=== PATIENT | female | born 1930 | race Caucasian/White ===

== ENCOUNTER 2016-04-19 12:40 | Inpatient (IN) | payer MEDICARE, BC ==
[~2016-04-19] VITALS: Ht 165.1 cm; Wt 68.4 kg
[~2016-04-19 12:40] MED LIST: 00186-0372-20 IH; ANDROGEL1% TP; ASPI325T6 PO; ASPIRIN 81M81 MG/TA2 PO; ASPIRIN E.C. 8181 MG PO; BENADRYL25 M2 PO; BENADRYL50 MG PO; CALAN120 MG PO; CALCIUM 600-D 61 TAB PO; CALCIUM 600600 M1 PO; CIPRO 500MG TA500 MG PO; CLARITIN 1010 MG/TAB PO; CLOBETASOL0.05% TP; COZAAR 50MG50 MG/TAB PO; DULCOLAX S10 MG/SUPP RC; DULERA1 AR1 IH; EPA FISH OIL1000 MG PO; FERROUSAL325 MG PO; FLAGYL500 MG PO; FLONASE0.05 MG/AC NS; FLOVENT 220MCG7.9 GM IH; FORADIL IH; FOSAMAX PLUS D1 TAB PO; IBU-4400 MG PO; LASIX 20MG TABL20 MG PO; LEVOTHYROXIN0.075 MG PO; MAXZIDE-25MG TA1 TAB PO; MILK OF MA400 MG/52 PO; MULTI VITAMINS1 TAB PO; MULTIPLE VITAMI1 CAP PO; NEXIUM 40MG40 MG PO; NORCO 325 MG-51 TAB PO; OMEGA 31000 MG PO; PRILOSEC 20MG20 MG PO; PRINIVIL10 MG PO; PROTONIX 40MG T40 MG PO; RT ADVAIR HFA 1112 G IH; RT SPIRIVA18 MCG IH; SENOKOT S 50 MG1 TAB PO; SINGULAIR 110 MG/TAB PO; SYNTHROID0.075 MG/T PO; TEMOVATE0.05% TP; TYLENOL 325MG325 MG PO; TYLENOL 500MG500 MG PO; TYLENOL PM 5001 CAP PO; UNABLE; VERAPAMIL HCL180 M1 PO; VERAPAMIL120 MG/TA1 PO; VERAPAMIL240 MG/TAB PO; VITAMINS; ZANTAC 150150 MG PO; ZANTAC 150MG T150 MG PO; ZESTRIL 10MG10 MG PO
[2016-06-18] MEDS ORDERED: PROTONIX 40MG T40 MG PO (11:47)
[2016-06-18] MEDS ORDERED: BENADRYL25 M2 PO (11:50)
[2016-06-18] MEDS ORDERED: DITROPAN XL10 MG PO (11:50)
[2016-06-18] MEDS ORDERED: LUTEIN20 M1 PO (11:51)
[2016-06-21] VITALS (12 sets, daily range): BP systolic 102–142; BP diastolic 49–78; PULSE 55–77; TEMP 97.3–98
[2016-06-21] MEDS ORDERED: CELEBREX 200MG200 MG PO (14:11)
[2016-06-21] MEDS ORDERED: NORCO 325 MG-7.1 TAB PO (14:11)
[2016-06-21] MEDS ORDERED: ULTRAM 50MG TAB50 MG PO (14:11)
[2016-06-21] MEDS ORDERED: XARELTO10 MG PO (14:12)
[2016-06-22 03:01] VITALS: BP 107/53; PULSE 70; TEMP 96.9
[2016-06-22 06:58] LABS: HEMATOCRIT 31.7 % (37.0-47.0); HEMOGLOBIN 10.4 g/dl (12.5-16.0)
[2016-06-22 08:09] VITALS: BP 151/60; PULSE 88; TEMP 98.6
[2016-06-22 11:52] VITALS: BP 109/86; PULSE 64; TEMP 97.4
[2016-06-22 15:32] VITALS: BP 122/43; PULSE 64; TEMP 97.5
[2016-06-22 20:06] VITALS: BP 117/51; PULSE 64; TEMP 97.5
[2016-06-23] VITALS (7 sets, daily range): BP systolic 90–134; BP diastolic 36–72; PULSE 57–77; TEMP 97.6–98.5
[2016-06-24 00:39] VITALS: BP 93/51; PULSE 72; TEMP 98.2
[2016-06-24 04:38] VITALS: BP 123/52; PULSE 79; TEMP 98.2
[2016-06-24 07:38] VITALS: BP 110/50; PULSE 71; TEMP 98.3
== END 2016-06-24 11:13 | DRG 470 ==
LOC: JCC 06-21 07:30
PROVIDERS: Orthopaedic Surgery
PROC: 0SRD0J9 Replacement of Left Knee Joint with Synthetic Substitute, Cemented, Open Approach (ICD-10-PCS; principal; 2016-06-21 09:45)
DX: M17.12 Unilateral primary osteoarthritis, left knee (principal); I10 Essential (primary) hypertension; Z87.891 Personal history of nicotine dependence
CPT/HCPCS: A4315; A9284; C1713; C1776; J0690; J1100; J1885; J2250; J2270; J2405; J2550; J2704; J7120

== ENCOUNTER → 2016-06-26 | Outpatient (REF) ==
[~2016-06-26] MED LIST changes: +CELEBREX 200MG200 MG PO; +DITROPAN XL10 MG PO; +K-DUR 10 MEQ T10 MEQ PO; +LUTEIN20 M1 PO; +NORCO 325 MG-7.1 TAB PO; +ULTRAM 50MG TAB50 MG PO; +XARELTO10 MG PO
[2016-06-26 13:54] LABS: PH 6 (5-8); SQUAMOUS EPITHELIAL None Seen /hpf; URINE APPEARANCE Cloudy; URINE BACTERIA Many /hpf; URINE BILIRUBIN Negative (NEGATIVE); URINE BLOOD 3+ (NEGATIVE); URINE COLOR Amber; URINE GLUCOSE Negative (NEGATIVE); URINE KETONE Negative (NEGATIVE); URINE RBC >50 /hpf; URINE UROBILINOGEN >=4.0 mg/dL (NEGATIVE); URINE WBC >50 /hpf
== END ==
LOC: ZCOL.LAB 12:14
PROVIDERS: Nurse Practitioner Family
DX: Z01.89 Encounter for other specified special examinations (principal)

== ENCOUNTER 2016-12-17 11:49 | Inpatient (IN) | payer MEDICARE, BC ==
[~2016-12-17] VITALS: Ht 165.1 cm; Wt 72.0 kg
[2016-12-17] VITALS (10 sets, daily range): BP systolic 96–131; BP diastolic 46–61; PULSE 73–83; TEMP 98–98.4
[~2016-12-17 11:49] MED LIST changes: -K-DUR 10 MEQ T10 MEQ PO
[2016-12-17] MEDS ORDERED: SINGULAIR 110 MG/TAB PO (12:01)
[2016-12-17] MEDS ORDERED: TYLENOL 500MG500 MG PO (12:06)
[2016-12-17 14:51] LABS: BASO # 0.1 (0.0-0.2); BASO % 0.5 % (0.0-2.0); EOS # 0.2 (0.0-0.7); EOS % 1.7 % (0-4.0); GRAN # 11.3 (1.4-6.5); GRAN % 81.5 % (42.2-75.2); HEMATOCRIT 37.1 % (37.0-47.0); LYMPH # 1.3 (1.2-3.4); MEAN CELL VOLUME 95 fl (80.0-100.0); MEAN CORPUSCULAR HEMOGLOBIN 31 pg (27.0-31.0); MEAN CORPUSCULAR HGB CONC 32 g/dl (33.0-37.0); MEAN PLATELET VOLUME 8.9 fl (7.4-10.4); MONO % 6.9 % (1.7-9.3); PLATELET COUNT 256 K/mm3 (130-400); RED BLOOD COUNT 3.89 M/mm3 (4.10-5.30); REDCELL DISTRIBUTION WIDTH-CV 15.3 % (11.5-14.5); WHITE BLOOD COUNT 13.8 K/mm3 (4.8-10.8)
[2016-12-17 14:52] LABS: HEMOGLOBIN 11.9 g/dl (12.5-16.0)
[2016-12-17 15:01] LABS: ALBUMIN 3.8 gm/dL (3.5-5.0); BILIRUBIN,TOTAL 0.5 mg/dL (0.0-1.0); CALCIUM 9.8 mg/dL (8.4-10.2); CREATININE, serum 0.74 mg/dL (0.52-1.25); POTASSIUM 4.9 mmol/L (3.4-5.0); TOTAL PROTEIN 6.5 gm/dL (6.4-8.2)
[2016-12-17 15:16] LABS: PROTHROMBIN TIME 11.5 SECONDS (9.7-12.8)
[2016-12-17 16:05] LABS: PH 5 (5-8); SQUAMOUS EPITHELIAL 0-2 /hpf; URINE APPEARANCE Clear; URINE BACTERIA None Seen /hpf; URINE BILIRUBIN Negative (NEGATIVE); URINE BLOOD 2+ (NEGATIVE); URINE COLOR Yellow; URINE GLUCOSE Negative (NEGATIVE); URINE KETONE Negative (NEGATIVE); URINE RBC 0-2 /hpf; URINE UROBILINOGEN Negative (NEGATIVE); URINE WBC 0-2 /hpf
[2016-12-18] VITALS (7 sets, daily range): BP systolic 78–109; BP diastolic 43–62; PULSE 55–88; TEMP 97.5–98.6
[2016-12-18 07:09] LABS: BASO % 0.2 % (0.0-2.0); EOS # 0.1 (0.0-0.7); EOS % 0.5 % (0-4.0); GRAN # 7.1 (1.4-6.5); GRAN % 73.9 % (42.2-75.2); LYMPH # 1.3 (1.2-3.4); LYMPH % 13.1 % (20.0-51.0); MEAN CELL VOLUME 99 fl (80.0-100.0); MEAN CORPUSCULAR HGB CONC 31 g/dl (33.0-37.0); MEAN PLATELET VOLUME 9.1 fl (7.4-10.4); MONO # 1.1 (0.1-0.6); MONO % 11.9 % (1.7-9.3); PLATELET COUNT 213 K/mm3 (130-400); RED BLOOD COUNT 3.23 M/mm3 (4.10-5.30); REDCELL DISTRIBUTION WIDTH-CV 15.5 % (11.5-14.5); WHITE BLOOD COUNT 9.6 K/mm3 (4.8-10.8)
[2016-12-18 07:22] LABS: CREATININE, serum 0.79 mg/dL (0.52-1.25); HEMATOCRIT 31.8 % (37.0-47.0); HEMOGLOBIN 9.9 g/dl (12.5-16.0); MEAN CORPUSCULAR HEMOGLOBIN 31 pg (27.0-31.0); POTASSIUM 4.8 mmol/L (3.4-5.0)
[2016-12-19 07:14] LABS: HEMATOCRIT 31.1 % (37.0-47.0); HEMOGLOBIN 9.7 g/dl (12.5-16.0)
[2016-12-19 09:08] VITALS: BP 101/49; PULSE 85; TEMP 98
[2016-12-19 14:45] VITALS: BP 97/47; PULSE 88; TEMP 98.4
[2016-12-19 17:55] VITALS: BP 103/50; PULSE 83; TEMP 98.1
[2016-12-19 20:00] VITALS: BP 98/43; PULSE 78; TEMP 97.6
[2016-12-20 00:41] VITALS: BP 106/48; PULSE 76; TEMP 97.8
[2016-12-20 04:35] VITALS: BP 108/49; PULSE 73; TEMP 98.1
[2016-12-20 08:19] LABS: HEMATOCRIT 31.7 % (37.0-47.0); HEMOGLOBIN 9.9 g/dl (12.5-16.0)
[2016-12-20 08:52] LABS: POTASSIUM 4.5 mmol/L (3.4-5.0)
[2016-12-20 09:12] LABS: MEAN CELL VOLUME 98 fl (80.0-100.0); MEAN CORPUSCULAR HGB CONC 31 g/dl (33.0-37.0); MEAN PLATELET VOLUME 9.8 fl (7.4-10.4); PLATELET COUNT 203 K/mm3 (130-400); RED BLOOD COUNT 3.25 M/mm3 (4.10-5.30); REDCELL DISTRIBUTION WIDTH-CV 14.6 % (11.5-14.5); WHITE BLOOD COUNT 8.8 K/mm3 (4.8-10.8)
[2016-12-20 09:18] LABS: ADD PATHOLOGY DIFF REVIEW NO; HEMATOCRIT 31.8 % (37.0-47.0); MEAN CORPUSCULAR HEMOGLOBIN 31 pg (27.0-31.0)
[2016-12-20 09:51] LABS: CALCIUM 8.3 mg/dL (8.4-10.2); CREATININE, serum 0.72 mg/dL (0.52-1.25); POTASSIUM 4.8 mmol/L (3.4-5.0)
[2016-12-20 10:04] VITALS: BP 94/55; PULSE 72; TEMP 97.7
[2016-12-20 11:32] LABS: PH 5 (5-8); SQUAMOUS EPITHELIAL 0-2 /hpf; URINE APPEARANCE Clear; URINE BACTERIA None Seen /hpf; URINE BILIRUBIN Negative (NEGATIVE); URINE BLOOD Negative (NEGATIVE); URINE COLOR Yellow; URINE GLUCOSE Negative (NEGATIVE); URINE KETONE 1+ (NEGATIVE); URINE RBC 0-2 /hpf; URINE UROBILINOGEN Negative (NEGATIVE); URINE WBC 0-2 /hpf
[2016-12-20 12:51] VITALS: BP 92/50; PULSE 63; TEMP 97.8
[2016-12-20 13:17] LABS: BAND 13 % (0-10); EOSINOPHIL 1 % (0-4); NEUTROPHILS 73 % (42.0-75.2); TOTAL CELLS COUNTED 100
[2016-12-20 13:18] LABS: PLATELET ESTIMATE NORMAL (NORMAL)
[2016-12-20 17:40] VITALS: BP 107/49; PULSE 69; TEMP 98.1
[2016-12-20 21:55] VITALS: BP 98/45; PULSE 68; TEMP 97.6
[2016-12-21 01:39] VITALS: BP 89/49; PULSE 68; TEMP 99.2
[2016-12-21 05:07] VITALS: BP 100/54; PULSE 77; TEMP 98.3
[2016-12-21 07:20] LABS: MEAN CELL VOLUME 95 fl (80.0-100.0); MEAN CORPUSCULAR HGB CONC 33 g/dl (33.0-37.0); MEAN PLATELET VOLUME 8.8 fl (7.4-10.4); PLATELET COUNT 212 K/mm3 (130-400); RED BLOOD COUNT 2.84 M/mm3 (4.10-5.30); REDCELL DISTRIBUTION WIDTH-CV 14.9 % (11.5-14.5); WHITE BLOOD COUNT 6.1 K/mm3 (4.8-10.8)
[2016-12-21 07:31] LABS: ADD PATHOLOGY DIFF REVIEW NO; HEMATOCRIT 27.1 % (37.0-47.0); HEMOGLOBIN 8.8 g/dl (12.5-16.0); MEAN CORPUSCULAR HEMOGLOBIN 31 pg (27.0-31.0)
[2016-12-21 07:33] LABS: CALCIUM 9.1 mg/dL (8.4-10.2); CREATININE, serum 1.01 mg/dL (0.52-1.25); MAGNESIUM 2.1 mg/dL (1.6-2.3); POTASSIUM 4.4 mmol/L (3.4-5.0)
[2016-12-21 09:43] VITALS: BP 94/47; PULSE 73; TEMP 97.4
[2016-12-21 09:45] LABS: BAND 47 % (0-10); DOHLE BODIES PRESENT; EOSINOPHIL 7 % (0-4); NEUTROPHILS 9 % (42.0-75.2); TOTAL CELLS COUNTED 100
[2016-12-21 10:01] LABS: TOXIC GRANULATION PRESENT
[2016-12-21 13:58] VITALS: BP 101/44; PULSE 62; TEMP 97.7
[2016-12-21 17:37] VITALS: BP 99/46; PULSE 99; TEMP 97.7
[2016-12-21 22:17] VITALS: BP 96/46; PULSE 72; TEMP 97
[2016-12-22 05:50] VITALS: BP 115/52; PULSE 79; TEMP 97.9
[2016-12-22 06:35] LABS: BASO % 0.5 % (0.0-2.0); EOS # 0.4 (0.0-0.7); EOS % 7.6 % (0-4.0); GRAN % 51.7 % (42.2-75.2); LYMPH # 1.3 (1.2-3.4); LYMPH % 22.1 % (20.0-51.0); MEAN CELL VOLUME 96 fl (80.0-100.0); MEAN CORPUSCULAR HGB CONC 32 g/dl (33.0-37.0); MEAN PLATELET VOLUME 8.8 fl (7.4-10.4); MONO % 17.6 % (1.7-9.3); PLATELET COUNT 225 K/mm3 (130-400); RED BLOOD COUNT 2.91 M/mm3 (4.10-5.30); REDCELL DISTRIBUTION WIDTH-CV 15.1 % (11.5-14.5); WHITE BLOOD COUNT 5.8 K/mm3 (4.8-10.8)
[2016-12-22 06:47] LABS: HEMATOCRIT 27.8 % (37.0-47.0); HEMOGLOBIN 8.8 g/dl (12.5-16.0); MEAN CORPUSCULAR HEMOGLOBIN 30 pg (27.0-31.0)
[2016-12-22 06:59] LABS: CALCIUM 9.1 mg/dL (8.4-10.2); CREATININE, serum 0.85 mg/dL (0.52-1.25); MAGNESIUM 1.9 mg/dL (1.6-2.3); POTASSIUM 4.1 mmol/L (3.4-5.0)
[2016-12-22] MEDS ORDERED: ULTRAM 50MG TAB50 MG PO (07:38)
[2016-12-22] MEDS ORDERED: XARELTO10 MG PO (07:38)
[2016-12-22] MEDS ORDERED: CELEBREX 200MG200 MG PO (07:38)
[2016-12-22] MEDS ORDERED: LASIX 20MG TABL20 MG PO (09:42)
[2016-12-22] MEDS ORDERED: K-DUR 10 MEQ T10 MEQ PO (09:42)
[2016-12-22] MEDS ORDERED: NORCO 325 MG-51 TAB PO (09:43)
[2016-12-22 09:51] VITALS: BP 115/52; PULSE 79; TEMP 97.9
[2016-12-22 10:00] VITALS: BP 100/53; PULSE 87; TEMP 97.8
[2016-12-22 10:31] VITALS: BP 115/52; PULSE 79; TEMP 97.9
== END 2016-12-22 12:20 | DRG 481 ==
LOC: COL.ER 11:49 → SURG 12:59
PROVIDERS: Family Medicine; Nurse Practitioner Family; Orthopaedic Surgery; Physician Assistant
PROC: 0HQ0XZZ Repair Scalp Skin, External Approach (ICD-10-PCS; 2016-12-17)
PROC: 0QS606Z Reposition Right Upper Femur with Intramedullary Internal Fixation Device, Open Approach (ICD-10-PCS; principal; 2016-12-17 17:45)
DX: S72.141A Displaced intertrochanteric fracture of right femur, initial encounter for closed fracture (principal); E87.1 Hypo-osmolality and hyponatremia; F05 Delirium due to known physiological condition; Z66 Do not resuscitate; W18.30XA Fall on same level, unspecified, initial encounter; I10 Essential (primary) hypertension; J44.9 Chronic obstructive pulmonary disease, unspecified; Z87.891 Personal history of nicotine dependence; I34.0 Nonrheumatic mitral (valve) insufficiency; S01.01XA Laceration without foreign body of scalp, initial encounter; E87.70 Fluid overload, unspecified; D50.0 Iron deficiency anemia secondary to blood loss (chronic)
CPT/HCPCS: 99222-AI; 99232-AI; 99233-AI; 99239; A4315; C1713; J0690; J1170; J1885; J1940; J2250; J2270; J2370; J2405; J2704; J3010; J7030; J7040

== ENCOUNTER 2017-04-23 21:04 | Emergency (ER) | payer MEDICARE, BC ==
[2007-04-24 06:18] VITALS: BP 138/77
[~2017-04-23] VITALS: Ht 170.2 cm; Wt 63.4 kg
[~2017-04-23 21:04] MED LIST changes: +K-DUR 10 MEQ T10 MEQ PO
[2017-04-23 22:13] LABS: BASO # 0.1 (0.0-0.2); BASO % 0.4 % (0.0-2.0); EOS # 0.5 (0.0-0.7); GRAN # 12.3 (1.4-6.5); HEMATOCRIT 43.3 % (37.0-47.0); HEMOGLOBIN 13.5 g/dl (12.5-16.0); LYMPH # 1.3 (1.2-3.4); LYMPH % 8.6 % (20.0-51.0); MEAN CELL VOLUME 95 fl (80.0-100.0); MEAN CORPUSCULAR HEMOGLOBIN 30 pg (27.0-31.0); MEAN CORPUSCULAR HGB CONC 31 g/dl (33.0-37.0); MONO # 1.3 (0.1-0.6); MONO % 8.6 % (1.7-9.3); PLATELET COUNT 269 K/mm3 (130-400); RED BLOOD COUNT 4.57 M/mm3 (4.10-5.30); WHITE BLOOD COUNT 15.5 K/mm3 (4.8-10.8)
[2017-04-23 22:21] LABS: ADJUSTED CALCIUM 9.7 mg/dL (8.4-10.2); ALBUMIN 4.7 gm/dL (3.5-5.0); BILIRUBIN,TOTAL 0.5 mg/dL (0.0-1.0); CALCIUM 10.3 mg/dL (8.4-10.2); CREATININE, serum 1.09 mg/dL (0.52-1.25); POTASSIUM 4.2 mmol/L (3.4-5.0); TOTAL PROTEIN 7.9 gm/dL (6.4-8.2)
[2017-04-24 00:11] LABS: COLLECTION METHOD CLEAN CATCH
[2017-04-24 00:16] LABS: MUCOUS Present /lpf; PH 5 (5-8); SQUAMOUS EPITHELIAL None Seen /hpf; URINE APPEARANCE Clear; URINE BACTERIA None Seen /hpf; URINE BILIRUBIN Negative (NEGATIVE); URINE BLOOD Negative (NEGATIVE); URINE COLOR Yellow; URINE GLUCOSE Negative (NEGATIVE); URINE KETONE Negative (NEGATIVE); URINE LEUKOCYTE ESTERASE Negative (NEGATIVE); URINE PROTEIN(semi-quant) Negative (NEGATIVE); URINE RBC 0-2 /hpf; URINE UROBILINOGEN Negative (NEGATIVE); URINE WBC 0-2 /hpf
[2017-04-24 01:38] VITALS: BP 109/62; PULSE 78; TEMP 98.2
== END 2017-04-24 01:00 | disposition home or self-care (01) ==
LOC: COL.ER 21:04
PROVIDERS: Emergency Medicine
DX: R19.7 Diarrhea, unspecified (principal); E86.0 Dehydration; I10 Essential (primary) hypertension; K21.9 Gastro-esophageal reflux disease without esophagitis; E03.9 Hypothyroidism, unspecified; Z90.49 Acquired absence of other specified parts of digestive tract; Z87.891 Personal history of nicotine dependence
CPT/HCPCS: J7120

== ENCOUNTER → 2017-07-07 | Outpatient (CLI) | payer MEDICARE, BC ==
[2017-07-07 09:11] LABS: BASO # 0.1 (0.0-0.2); BASO % 1.1 % (0.0-2.0); EOS # 0.6 (0.0-0.7); EOS % 11.9 % (0-4.0); GRAN # 2.7 (1.4-6.5); GRAN % 50.4 % (42.2-75.2); HEMATOCRIT 40.6 % (37.0-47.0); HEMOGLOBIN 12.7 g/dl (12.5-16.0); LYMPH # 1.4 (1.2-3.4); LYMPH % 26.7 % (20.0-51.0); MEAN CELL VOLUME 100 fl (80.0-100.0); MEAN CORPUSCULAR HEMOGLOBIN 31 pg (27.0-31.0); MEAN CORPUSCULAR HGB CONC 31 g/dl (33.0-37.0); MONO # 0.5 (0.1-0.6); MONO % 9.7 % (1.7-9.3); PLATELET COUNT 250 K/mm3 (130-400); RED BLOOD COUNT 4.07 M/mm3 (4.10-5.30)
[2017-07-07 09:24] LABS: ALBUMIN 4.2 gm/dL (3.5-5.0); BILIRUBIN,TOTAL 0.5 mg/dL (0.0-1.0); CALCIUM 9.9 mg/dL (8.4-10.2); CHOLESTEROL RISK RATIO 2.7; CREATININE, serum 0.81 mg/dL (0.52-1.25); POTASSIUM 4.4 mmol/L (3.4-5.0)
[2017-07-07 09:51] LABS: THYROID STIMULATING HORMONE 5.11 uIU/mL (0.465-4.680)
== END ==
LOC: COL.LAB 08:22
PROVIDERS: Internal Medicine
DX: I10 Essential (primary) hypertension (principal); E78.2 Mixed hyperlipidemia

== ENCOUNTER 2017-07-15 00:20 | Emergency (ER) | payer MEDICARE, BC ==
[2007-04-24 06:18] VITALS: BP 138/77
[~2017-07-15] VITALS: Ht 165.1 cm; Wt 65.9 kg
[2017-07-15 00:28] VITALS: TEMP 96.8
[2017-07-15 00:55] LABS: BASO # 0.1 (0.0-0.2); BASO % 1.1 % (0.0-2.0); EOS # 0.7 (0.0-0.7); EOS % 8.5 % (0-4.0); GRAN % 47.1 % (42.2-75.2); HEMATOCRIT 37.5 % (37.0-47.0); LYMPH # 2.8 (1.2-3.4); LYMPH % 32.2 % (20.0-51.0); MEAN CELL VOLUME 97 fl (80.0-100.0); MEAN CORPUSCULAR HEMOGLOBIN 31 pg (27.0-31.0); MEAN CORPUSCULAR HGB CONC 32 g/dl (33.0-37.0); MEAN PLATELET VOLUME 8.6 fl (7.4-10.4); MONO # 0.9 (0.1-0.6); PLATELET COUNT 245 K/mm3 (130-400); RED BLOOD COUNT 3.86 M/mm3 (4.10-5.30); REDCELL DISTRIBUTION WIDTH-CV 13.8 % (11.5-14.5)
[2017-07-15 00:56] LABS: HEMOGLOBIN 11.9 g/dl (12.5-16.0)
[2017-07-15 01:02] LABS: ALANINE AMINOTRANSFERASE 21 U/L (9-52); ALBUMIN 3.9 gm/dL (3.5-5.0); ALKALINE PHOSPHATASE 74 U/L (50-136); ANION GAP 7 mmol/L (7-16); AST,SGOT 19 U/L (15-37); BILIRUBIN,TOTAL 0.2 mg/dL (0.0-1.0); BLOOD UREA NITROGEN 23 mg/dL (7-17); CARBON DIOXIDE 29 mmol/L (22-30); CHLORIDE 101 mmol/L (98-107); CREATININE, serum 0.76 mg/dL (0.52-1.25); GLUCOSE 101 mg/dL (74-106); INR 1.1 (0.8-3.0); LIPASE 78 U/L (23-300); POTASSIUM 4.3 mmol/L (3.4-5.0); PROTHROMBIN TIME 12.5 SECONDS (9.7-12.8); SODIUM 137 mmol/L (137-145); TOTAL PROTEIN 6.7 gm/dL (6.4-8.2)
[2017-07-15 01:05] LABS: PARTIAL THROMBOPLASTIN TIME 33.1 SECONDS (26.0-37.0)
[2017-07-15 01:15] LABS: TROPONIN-I < 0.012 ng/mL (0.000-0.034)
[2017-07-15] MEDS ORDERED: COZAAR 50MG50 MG/TAB PO (02:02)
[2017-07-15] MEDS ORDERED: VERELAN120 MG PO (02:02)
[2017-07-15 04:30] VITALS: BP 130/73; PULSE 70
== END 2017-07-15 04:51 | disposition home or self-care (01) ==
LOC: COL.ER 00:20
PROVIDERS: Emergency Medicine
DX: R07.9 Chest pain, unspecified (principal); Z90.49 Acquired absence of other specified parts of digestive tract; Z90.89 Acquired absence of other organs

== ENCOUNTER 2018-03-15 18:45 | Emergency (ER) | payer MEDICARE, BC ==
[2007-04-24 06:18] VITALS: BP 138/77
[~2018-03-15] VITALS: Ht 167.6 cm; Wt 65.9 kg
[~2018-03-15 18:45] MED LIST changes: +VERELAN120 MG PO
[2018-03-15 18:49] VITALS: TEMP 97.4
[2018-03-15 20:20] VITALS: BP 172/87; PULSE 75
== END 2018-03-15 20:20 | disposition home or self-care (01) ==
LOC: COL.ER 18:45
DX: S00.03XA Contusion of scalp, initial encounter (principal); I10 Essential (primary) hypertension; K21.9 Gastro-esophageal reflux disease without esophagitis; E03.9 Hypothyroidism, unspecified; J45.909 Unspecified asthma, uncomplicated; I48.91 Unspecified atrial fibrillation; Z87.891 Personal history of nicotine dependence; W01.198A Fall on same level from slipping, tripping and stumbling with subsequent striking against other object, initial encounter; Y92.511 Restaurant or cafe as the place of occurrence of the external cause

== ENCOUNTER 2019-05-26 07:44 | Emergency (ER) | payer MEDICARE, BC ==
[2007-04-24 06:18] VITALS: BP 138/77
[~2019-05-26] VITALS: Ht 154.9 cm; Wt 68.2 kg
[2019-05-26 07:54] VITALS: TEMP 97.9
[2019-05-26] MEDS ORDERED: ULTRAM 50MG TAB50 MG PO (09:16)
[2019-05-26 09:42] VITALS: BP 120/60; PULSE 75
[2019-05-27] MEDS ORDERED: 00186-0370-20 IH (21:16)
== END 2019-05-26 09:43 | disposition home or self-care (01) ==
LOC: COL.ER 07:44
DX: S20.211A Contusion of right front wall of thorax, initial encounter (principal); J44.9 Chronic obstructive pulmonary disease, unspecified; Z90.89 Acquired absence of other organs; Z87.891 Personal history of nicotine dependence; W07.XXXA Fall from chair, initial encounter

== ENCOUNTER 2019-05-27 20:34 | Inpatient (IN) | payer MEDICARE, BC ==
[~2019-05-27] VITALS: Ht 167.6 cm; Wt 73.3 kg
[2019-05-27] MEDS ORDERED: 00186-0370-20 IH (21:16)
[2019-05-27 22:04] LABS: ARTERIAL BLD GAS O2 SATURATION 94.8 % (92-100); ARTERIAL BLD GAS TCO2 CT 29.7; ARTERIAL BLOOD GAS BASE EXCESS 2.3 (-2-2); ARTERIAL BLOOD GAS HCO3 28.2 meq/L (22-26); ARTERIAL BLOOD GAS PCO2 49.1 mmHg (35-45); ARTERIAL BLOOD GAS PO2 68.8 mmHg (80-100); ARTERIAL BLOOD GAS pH 7.38 (7.35-7.45)
[2019-05-27 22:07] LABS: BASO % 0.3 % (0.0-2.0); EOS # 0.1 (0.0-0.7); EOS % 0.9 % (0-4.0); GRAN # 9.6 (1.4-6.5); GRAN % 81.4 % (42.2-75.2); HEMOGLOBIN 12.9 g/dl (12.5-16.0); LYMPH # 0.8 (1.2-3.4); LYMPH % 7.1 % (20.0-51.0); MEAN CELL VOLUME 94 fl (80.0-100.0); MEAN CORPUSCULAR HEMOGLOBIN 31 pg (27.0-31.0); MEAN CORPUSCULAR HGB CONC 33 g/dl (33.0-37.0); MEAN PLATELET VOLUME 9.5 fl (7.4-10.4); MONO # 1.2 (0.1-0.6); MONO % 9.9 % (1.7-9.3); PLATELET COUNT 255 K/mm3 (130-400); RED BLOOD COUNT 4.14 M/mm3 (4.10-5.30)
[2019-05-27 22:24] LABS: BILIRUBIN,TOTAL 0.4 mg/dL (0.0-1.0); CALCIUM 9.4 mg/dL (8.4-10.2); CREATININE, serum 1.3 (0.52-1.25); POTASSIUM 4.5 mmol/L (3.4-5.0)
[2019-05-28] VITALS (7 sets, daily range): BP systolic 103–139; BP diastolic 48–70; PULSE 68–85; TEMP 97.2–99.7
[2019-05-28 00:55] LABS: COLLECTION METHOD CLEAN CATCH
--- NOTE | 2019-05-28 01:00 | NUR ---
Pt transferred from ER by William to room 355. Pt accompanied by daughter/caregiver Shayla. Pt is laying in bed, A&O, no pain except when coughing due to rib pain from a recent fall. Pt is pleasant, daughter is very involved in her care. Daughter will be not remain here this evening with mother. Lab is currently at bedside for Labs ordered. No further concerns at this time.
--- NOTE | 2019-05-28 01:20 | NUR ---
Pt's daughter insists on medication for pain, however has stated that Morphine causes AMS that persists for days after given. Pt has severe pain that jumps to 8-9/10 pain when coughing due to pt's recent fall. Pt was recently at the hospital for a fall but was sent home from the ED. Pt cough/SOB increased post fall. Currently pt has fine crackles in upper lobes bilaterally, and significant rhonchi in bilateral bases. Pt brought incentive spirometer with her from home, this RN encouraged use. Pt is on 2L of O2 for decreased spo2. Pt has trace edema to both feet. No other concerns at this time.
[2019-05-28 01:31] LABS: MUCOUS Present /lpf; PH 5 (5-8); URINE APPEARANCE Hazy; URINE BACTERIA Rare /hpf; URINE BILIRUBIN Negative (NEGATIVE); URINE BLOOD Negative (NEGATIVE); URINE COLOR Yellow; URINE GLUCOSE Negative (NEGATIVE); URINE KETONE Negative (NEGATIVE); URINE LEUKOCYTE ESTERASE 3+ (NEGATIVE); URINE NITRATE Negative (NEGATIVE); URINE PROTEIN(semi-quant) Negative (NEGATIVE); URINE UROBILINOGEN Negative (NEGATIVE)
--- NOTE | 2019-05-28 02:34 | NUR ---
Pt requested pain medication for pain d/t rib pain from fall. Contacted Jessa Thompson APRN for pain management. Orders put in eMAR by MARIA ISABEL Germain. Medication administered, will reassess pain in 45 minutes. No further concern at this time.
[2019-05-28 05:59] LABS: BASO % 0.2 % (0.0-2.0); EOS # 0.2 (0.0-0.7); EOS % 2.1 % (0-4.0); GRAN # 6.8 (1.4-6.5); GRAN % 72.4 % (42.2-75.2); LYMPH # 1.2 (1.2-3.4); LYMPH % 12.7 % (20.0-51.0); MEAN CELL VOLUME 97 fl (80.0-100.0); MEAN CORPUSCULAR HGB CONC 31 g/dl (33.0-37.0); MEAN PLATELET VOLUME 9.1 fl (7.4-10.4); MONO # 1.1 (0.1-0.6); MONO % 12.1 % (1.7-9.3); PLATELET COUNT 192 K/mm3 (130-400); RED BLOOD COUNT 3.52 M/mm3 (4.10-5.30); REDCELL DISTRIBUTION WIDTH-CV 14.2 % (11.5-14.5)
[2019-05-28 06:20] LABS: ALBUMIN 3.1 gm/dL (3.5-5.0); BILIRUBIN,TOTAL 0.2 mg/dL (0.0-1.0); CALCIUM 8.9 mg/dL (8.4-10.2); CREATININE, serum 0.88 (0.52-1.25); POTASSIUM 4.1 mmol/L (3.4-5.0); TOTAL PROTEIN 5.9 gm/dL (6.4-8.2)
[2019-05-28 06:40] LABS: HEMATOCRIT 34.2 % (37.0-47.0); HEMOGLOBIN 10.5 g/dl (12.5-16.0); MEAN CORPUSCULAR HEMOGLOBIN 30 pg (27.0-31.0)
--- NOTE | 2019-05-28 06:59 | NUR ---
Report given to BRIANNA Gold. Pt morning medications have not been added to the eMAR yet. BRIANNA Gold will communicate that with daytime hospitalist. Transfer of care completed. No further concern at this time.
[2019-05-28] MEDS ORDERED: LASIX 20MG TABL20 MG PO (07:23)
--- NOTE | 2019-05-28 09:07 | NUR ---
Pt awake and alert this morning, sitting up and eating breakfast, C/O pain in right chest area, shift assessment complete, left Pt call light in reach, bed in lowest position.
--- NOTE | 2019-05-28 15:23 | NUR ---
SHAYY met with the patient and her friend, Delmy, to discuss discharge plan. The patient lives in [place] with her daughter (Shayla, ph#[phone]) and son (Jerome, ph#[phone]). She reports independence with ADLs and has a walker and CPAP from [facility]. The patient's PCP is Dr. Srini Hernandez and she receives her medications at [facility]. She reports no difficulties obtaining her meds. The patient's DPOA-HC is in EMR and it designates her daughter, Gilma Alston. The patient reports that she would be interested in getting a new DPOA-HC form, so that she could designate both her daughters. SW provided form. The patient plans to return home with her children upon discharge. No other additional needs at this time, but SW to continue to follow.
--- NOTE | 2019-05-28 19:48 | NUR ---
Pt resting in the room today, has C/O pain on the right uppers edge burnisher of her chest, pain medications given for relief, no other complaints noted, IV site changed fron her RAC to her L forearm, RAC IV site removed, catheter tip intact, VS have been remained stable.
--- NOTE | 2019-05-28 20:00 | NUR ---
Shift assessment complete. Patient in bed, just returned from the bathroom. States pain 5/10 in right side/ribcage. Prn pain medication given per request. Daughter at bedside requesting patient get norco "scheduled." Explained to the daughter and patient that medication is prn. Educated patient and daughter that director of medical staff services should be assessing pain q4 hours, and medication is ordered q4. Therefore, she will be getting medication somewhat scheduled. Patient stated she would like to be woken up for pain assessment. Patient and daughter verbalized understanding. Denies further needs at this time. Will continue to assess.
--- NOTE | 2019-05-29 01:40 | NUR ---
Patient in bed, just returned from the bathroom. States pain increased with movement, and is unbearable. Prn norco given 1 hour ago. Order states one more tab can be given if first dose is not effective. Medication given, heat applied to right side. Denies further needs at this time. Will continue to monitor.
[2019-05-29 04:26] VITALS: BP 112/53; PULSE 71; TEMP 97.3
--- NOTE | 2019-05-29 05:34 | NUR ---
Patient in bed, awake. States pain is 3/10 in right ribcage. Requesting pain medication to stay ahead of the pain. Discussed with patient the importance of having bowel regimen medication d/t frequent pain medication. She verbalized understanding. Denies constipation, and is passing gas. No prn bowel meds available, will notify day RN to request orders. Patient agreeable to plan. Denies further needs at this time. Will continue to monitor.
--- NOTE | 2019-05-29 06:38 | NUR ---
Patient in bed, tearful. States she is worried about her lung infection, and agrees that she is probably anxious about her illness. Denies need for medication. Emotional support given. Patient states her pain is better. Denies further needs at this time. Will continue to monitor.
--- NOTE | 2019-05-29 08:00 | NUR ---
SEE MORNING SHIFT ASSESSMENT.
[2019-05-29 08:33] VITALS: BP 107/55; PULSE 74; TEMP 97.7
[2019-05-29 08:56] LABS: BASO % 0.2 % (0.0-2.0); GRAN # 10.5 (1.4-6.5); GRAN % 89.2 % (42.2-75.2); HEMOGLOBIN 10.3 g/dl (12.5-16.0); LYMPH # 0.7 (1.2-3.4); LYMPH % 5.5 % (20.0-51.0); MEAN CELL VOLUME 97 fl (80.0-100.0); MEAN CORPUSCULAR HEMOGLOBIN 30 pg (27.0-31.0); MEAN CORPUSCULAR HGB CONC 31 g/dl (33.0-37.0); MEAN PLATELET VOLUME 9.7 fl (7.4-10.4); MONO # 0.5 (0.1-0.6); MONO % 4.6 % (1.7-9.3); PLATELET COUNT 212 K/mm3 (130-400); RED BLOOD COUNT 3.44 M/mm3 (4.10-5.30); REDCELL DISTRIBUTION WIDTH-CV 13.8 % (11.5-14.5)
[2019-05-29 08:57] LABS: HEMATOCRIT 33.2 % (37.0-47.0)
[2019-05-29 09:41] LABS: CALCIUM 9.2 mg/dL (8.4-10.2); CREATININE, serum 0.94 (0.52-1.25); POTASSIUM 4.4 mmol/L (3.4-5.0)
[2019-05-29 11:55] VITALS: BP 153/71; PULSE 85; TEMP 97.3
--- NOTE | 2019-05-29 13:00 | NUR ---
NURSE ENTERED THE ROOM AND PATIENT BECAME NAUSEATED AND VOMITED 400 MLS OF EMESIS. PATIENT EATING LUNCH. FOOD PARTICLES PRESENT IN EMESIS. MARIA ISABEL LUNA NOTIFIED OF EMESIS AND THAT THE PATIENT DOES NOT HAVE ANTI-NAUSEA MEDICATIONS ORDERED.
--- NOTE | 2019-05-29 15:00 | NUR ---
SHAYY met with the patient to review discharge plan. The patient reports that she still plans to return home with her daughter and son upon discharge. SHAYY discussed home health services. The patient reports that she would be interested in home health. SHAYY provided the patient with Medicare.gov's list of home health agencies that serve [place]. The patient chose [facility]. SHAYY contacted and faxed a referral to Hai at [facility]. Hai reports that they are able to accept the patient for services. SHAYY to inform the patient and will continue to follow.
[2019-05-29 16:16] VITALS: BP 118/60; PULSE 78; TEMP 98.1
--- NOTE | 2019-05-29 19:16 | NUR ---
REPORT GIVEN TO BRIANNA HAMEED.
[2019-05-29 20:00] VITALS: BP 112/60; PULSE 60; TEMP 97.3
--- NOTE | 2019-05-29 20:25 | NUR ---
Patient assessed at this time. Alert and oriented x 4, and able to make needs known. Denies having pain and discomfort at this time. Peripheral IV to left forearm with NS at 75 ml/hr per ordes. Site is without redness, warmth, swelling, and pain. On oxygen at 2 L/min via NC. Reports SOB with exertion, but states it is better. LS coarse crackles throughout. Productive cough. Respirations even and unlabored. HRR. Telemetry: NS. Capillary refill less than 3 seconds. Non-tenting skin rugor. BSAx4. Abdomen soft and non-tender. No edema. Voices no questions, needs, or concerns at this time. Resting in recliner with call light within reach.
--- NOTE | 2019-05-29 22:20 | NUR ---
Patient complaining of pain to ribs. Given PRN [place] for pain as requested.
--- NOTE | 2019-05-29 22:21 | NUR ---
Patient given PRN Zofran for nausea.
[2019-05-30] VITALS: BP 133/65; PULSE 81; TEMP 97.9
[2019-05-30 04:19] VITALS: BP 110/55; PULSE 73; TEMP 97.5
--- NOTE | 2019-05-30 06:20 | NUR ---
Patient had requested that staff minimize awakenings throughout the night. Did not complain of pain or discomfort throughout the night. Given PRN [place] with medication this morning. Stated she slept well during the night. Denies having any nausea. Resting in bed with call light within reach.
[2019-05-30 08:58] VITALS: BP 131/61; PULSE 77; TEMP 97.6
[2019-05-30 10:00] LABS: BASO % 0.1 % (0.0-2.0); EOS % 0.2 % (0-4.0); GRAN # 6.8 (1.4-6.5); GRAN % 78.3 % (42.2-75.2); HEMOGLOBIN 10.7 g/dl (12.5-16.0); LYMPH % 11.3 % (20.0-51.0); MEAN CELL VOLUME 96 fl (80.0-100.0); MEAN CORPUSCULAR HEMOGLOBIN 30 pg (27.0-31.0); MEAN CORPUSCULAR HGB CONC 31 g/dl (33.0-37.0); MONO # 0.8 (0.1-0.6); MONO % 9.4 % (1.7-9.3); PLATELET COUNT 153 K/mm3 (130-400); RED BLOOD COUNT 3.61 M/mm3 (4.10-5.30); REDCELL DISTRIBUTION WIDTH-CV 13.9 % (11.5-14.5)
[2019-05-30 10:01] LABS: HEMATOCRIT 34.7 % (37.0-47.0)
[2019-05-30 10:10] LABS: CALCIUM 9.3 mg/dL (8.4-10.2); CREATININE, serum 0.85 (0.52-1.25); MAGNESIUM 2.3 mg/dL (1.6-2.3); POTASSIUM 4.8 mmol/L (3.4-5.0)
[2019-05-30 12:26] VITALS: BP 106/53; PULSE 76; TEMP 97.3
--- NOTE | 2019-05-30 12:45 | NUR ---
Pt reports pain to right side increased to 4 out of 10, PRN pain medication administered per orders. No further needs reported. Call light in reach.
--- NOTE | 2019-05-30 13:27 | NUR ---
Hospitalist informed SHAYY that the family was interested in a residential stay. SHAYY met with the patient and the patient's daughter, Stephanie and presented Medicare.gov's list of detention compare facilities. The first choice is [facility] and second choice is [facility] and patient choice formed was signed by the patient's daughter with patient's persmission. SHAYY faxed referrals. Awaiting responses.
[2019-05-30 16:46] VITALS: BP 124/63; PULSE 80; TEMP 97.3
--- NOTE | 2019-05-30 17:48 | NUR ---
Patient sitting up in bed. Family at the bedside. Reporting pain in RT side, pain medication given when requested. VSS. IV CDI. No further needs expressed from patient. Call light within reach
[2019-05-30 20:32] VITALS: BP 145/72; PULSE 83; TEMP 97.7
--- NOTE | 2019-05-30 21:00 | NUR ---
Patient assessed at this time. Alert and oriented x 4, and able to make needs known. Reported level 5 pain to right side/ribs. Given PRN [place] as requsted for pain. Peripheral IV to left forearm flushed. Site is without redness, warmth, swelling, and pain. Reports SOB and dyspena with exertion. LS expiratory wheezes in upper lobes, coarse crackles in lower. Respirations even and unlabored. HRR. [facility]: NS. Capillary refill less than 3 seconds. Non-tenting skin turgor. BS hypoactive x 4. Reports constipation, and no BM for 5 days. Resting in bed with call light within reach.
--- NOTE | 2019-05-30 21:25 | NUR ---
Called Dr. Varghese and requested PRN Miralax per patient request for constipation. New order received and updated in AUG. Given patient Miralax at this time as requested for constipation. Resting in bed with call light within reach.
[2019-05-31 00:24] VITALS: BP 131/65; PULSE 81; TEMP 97.5
[2019-05-31] MEDS ORDERED: LASIX 20MG TABL20 MG PO (03:04)
--- NOTE | 2019-05-31 03:10 | NUR ---
Patient given PRN [place] for pain to right side at this time.
[2019-05-31 04:18] VITALS: BP 114/54; PULSE 78; TEMP 97.4
--- NOTE | 2019-05-31 06:03 | NUR ---
No further complaints of pain or discomfort at this time. Resting in bed with call light within reach.
[2019-05-31 07:05] LABS: BASO % 0.1 % (0.0-2.0); EOS % 0.1 % (0-4.0); GRAN # 6.8 (1.4-6.5); GRAN % 79.6 % (42.2-75.2); HEMOGLOBIN 10.7 g/dl (12.5-16.0); LYMPH # 0.9 (1.2-3.4); MEAN CELL VOLUME 99 fl (80.0-100.0); MEAN CORPUSCULAR HEMOGLOBIN 30 pg (27.0-31.0); MEAN CORPUSCULAR HGB CONC 31 g/dl (33.0-37.0); MEAN PLATELET VOLUME 8.8 fl (7.4-10.4); MONO # 0.8 (0.1-0.6); MONO % 9.5 % (1.7-9.3); RED BLOOD COUNT 3.56 M/mm3 (4.10-5.30); REDCELL DISTRIBUTION WIDTH-CV 14.1 % (11.5-14.5)
[2019-05-31 07:06] LABS: HEMATOCRIT 35.1 % (37.0-47.0); PLATELET COUNT 255 K/mm3 (130-400)
--- NOTE | 2019-05-31 07:28 | NUR ---
Report given to day shift nurse.
[2019-05-31 08:00] VITALS: BP 127/60; PULSE 80; TEMP 97.5
[2019-05-31] MEDS ORDERED: OMNICEF 300MG300 MG PO (09:35)
[2019-05-31] MEDS ORDERED: NORCO 325 MG-51 TAB PO (09:37)
[2019-05-31] MEDS ORDERED: PREDNISONE20 MG PO (09:39)
--- NOTE | 2019-05-31 10:15 | NUR ---
[facility], at [facility], reports that they are able to accept the patient for a skilled stay. SHAYY informed the patient and her daughter, Stephanie. SHAYY notified Angel at [facility]. The patient was also interested in completing a DPOA-HC. She designated her daughters, Shayla Sinha and Gilma Alston. SHAYY and livestock feeder, Sendy, witnessed the patient's signature. The patient was provided with the original and some copies. A copy was placed in the patient's chart. The patient is to discharge today, 05/31, to [facility] for a skilled stay. Transportation was scheduled for 1300, via [facility]. SHAYY informed the patient, patient's daughter, and her RN. They were all in agreeance to the time. SHAYY also presented and explained the IM form to the patient. The patient verbalized understanding, signed, and she was provided a copy. No additional needs at this time.
--- NOTE | 2019-05-31 11:36 | NUR ---
Pt VSS 02 at 2 L per NC with no s/s of respiratory distress noted, A&Ox4 and able to make wants/needs known. Pt continues to have right lateral pain at her ribs /10 that current medication regimen controls adequatelty. Call light within reach with no wants/needs at this time. IV CDI.
[2019-05-31 12:00] VITALS: BP 127/60; PULSE 80; TEMP 97.5
--- NOTE | 2019-05-31 13:00 | NUR ---
IV removed, tip intact, gauze and coban applied. Patient tolerated well. Patient assisted to the bathroom and then patieht ambulated with standby assist with walker to [facility] wheelchair. Daughter at the bedside. Personal belongings and discharge packet with transporter. No further needs expressed from patient. Reported called to [facility]
== END 2019-05-31 13:00 | DRG 193 ==
LOC: COL.ER 20:34 → MEDICAL 22:52
PROVIDERS: Family Medicine; Hospitalist; Nurse Practitioner Family; Physician Assistant; ADMIT Student in an Organized Health Care Education/Training Program
DX: J18.9 Pneumonia, unspecified organism (principal); J96.01 Acute respiratory failure with hypoxia; S22.41XA Multiple fractures of ribs, right side, initial encounter for closed fracture; J44.0 Chronic obstructive pulmonary disease with (acute) lower respiratory infection; N39.0 Urinary tract infection, site not specified; S27.329A Contusion of lung, unspecified, initial encounter; J44.1 Chronic obstructive pulmonary disease with (acute) exacerbation; G47.33 Obstructive sleep apnea (adult) (pediatric); I10 Essential (primary) hypertension; I34.0 Nonrheumatic mitral (valve) insufficiency; Z66 Do not resuscitate; E03.9 Hypothyroidism, unspecified; K21.9 Gastro-esophageal reflux disease without esophagitis; Z96.653 Presence of artificial knee joint, bilateral; Z87.891 Personal history of nicotine dependence; Z88.6 Allergy status to analgesic agent; Z88.3 Allergy status to other anti-infective agents; Z88.5 Allergy status to narcotic agent; Z88.8 Allergy status to other drugs, medicaments and biological substances; R91.1 Solitary pulmonary nodule; W19.XXXA Unspecified fall, initial encounter; Y93.89 Activity, other specified; Y92.89 Other specified places as the place of occurrence of the external cause; Y99.8 Other external cause status
CPT/HCPCS: 99222-AI; 99231-AI; 99239; A4216; J0696; J1200; J1650; J2405; J3010; J7030; J7512; Q9967

== ENCOUNTER 2019-06-01 17:46 | Inpatient (IN) | payer MEDICARE, BC ==
[~2019-06-01] VITALS: Ht 160 cm; Wt 75.1 kg
[2019-06-01] VITALS (43 sets, daily range): BP systolic 105; BP diastolic 64; PULSE 75; O2SAT 61–100
[~2019-06-01 17:46] MED LIST changes: +00186-0370-20 IH; +OMNICEF 300MG300 MG PO; +PREDNISONE20 MG PO
[2019-06-01 18:01] LABS: ARTERIAL BLD GAS O2 SATURATION 99.9 % (92-100); ARTERIAL BLD GAS TCO2 CT 41.4; ARTERIAL BLOOD GAS BASE EXCESS 2.3 (-2-2); ARTERIAL BLOOD GAS HCO3 37.2 meq/L (22-26); ARTERIAL BLOOD GAS PCO2 136.5 mmHg (35-45); ARTERIAL BLOOD GAS pH 7.05 (7.35-7.45)
[2019-06-01 18:02] LABS: ARTERIAL BLOOD GAS PO2 368.7 mmHg (80-100)
[2019-06-01 18:20] LABS: COLLECTION METHOD CATHETER
[2019-06-01 18:28] LABS: HEMATOCRIT 44.6 % (37.0-47.0); MEAN CELL VOLUME 99 fl (80.0-100.0); MEAN CORPUSCULAR HEMOGLOBIN 30 pg (27.0-31.0); MEAN CORPUSCULAR HGB CONC 30 g/dl (33.0-37.0); MEAN PLATELET VOLUME 9.6 fl (7.4-10.4); PLATELET COUNT 325 K/mm3 (130-400); RED BLOOD COUNT 4.51 M/mm3 (4.10-5.30)
[2019-06-01 18:32] LABS: HEMOGLOBIN 13.4 g/dl (12.5-16.0); PH 5 (5-8); SQUAMOUS EPITHELIAL None Seen /hpf; URINE APPEARANCE Clear; URINE BACTERIA None Seen /hpf; URINE BILIRUBIN Negative (NEGATIVE); URINE BLOOD Negative (NEGATIVE); URINE COLOR Yellow; URINE GLUCOSE Negative (NEGATIVE); URINE KETONE Negative (NEGATIVE); URINE LEUKOCYTE ESTERASE Negative (NEGATIVE); URINE NITRATE Negative (NEGATIVE); URINE PROTEIN(semi-quant) Negative (NEGATIVE); URINE RBC 0-2 /hpf; URINE UROBILINOGEN Negative (NEGATIVE)
[2019-06-01 18:37] LABS: ALBUMIN 4.3 gm/dL (3.5-5.0); BILIRUBIN,TOTAL 0.6 mg/dL (0.0-1.0); CALCIUM 9.9 mg/dL (8.4-10.2); CREATININE, serum 1.1 (0.52-1.25); POTASSIUM 5.3 mmol/L (3.4-5.0); TOTAL PROTEIN 7.5 gm/dL (6.4-8.2)
[2019-06-01 18:51] LABS: TROPONIN-I 0.895 ng/mL (0.000-0.035)
[2019-06-01 19:11] LABS: BAND 1 % (0-10); LYMPHOCYTE 8 % (20.0-51.0); NEUTROPHILS 84 % (42.0-75.2); PLATELET ESTIMATE NORMAL (NORMAL)
[2019-06-01 22:01] LABS: ARTERIAL BLD GAS O2 SATURATION 99.3 % (92-100); ARTERIAL BLD GAS TCO2 CT 25.1; ARTERIAL BLOOD GAS BASE EXCESS 0.6 (-2-2); ARTERIAL BLOOD GAS PCO2 34.6 mmHg (35-45); ARTERIAL BLOOD GAS PO2 211.7 mmHg (80-100); ARTERIAL BLOOD GAS pH 7.46 (7.35-7.45)
[2019-06-02] VITALS (901 sets, daily range): BP systolic 99–131; BP diastolic 56–86; PULSE 68–90; TEMP 96.3–98; O2SAT 98–100
[2019-06-02] MEDS ORDERED: ZOFRAN 4MG T4 MG/TAB PO (03:05)
[2019-06-02] MEDS ORDERED: GOOD NEIGH1200 MG/15 PO (03:07)
[2019-06-02 05:22] LABS: ARTERIAL BLD GAS O2 SATURATION 99.3 % (92-100); ARTERIAL BLD GAS TCO2 CT 24.5; ARTERIAL BLOOD GAS BASE EXCESS 2.2 (-2-2); ARTERIAL BLOOD GAS HCO3 23.7 meq/L (22-26); ARTERIAL BLOOD GAS PCO2 27.3 mmHg (35-45); ARTERIAL BLOOD GAS pH 7.56 (7.35-7.45)
[2019-06-02 05:24] LABS: ARTERIAL BLOOD GAS PO2 206.7 mmHg (80-100)
[2019-06-02 05:49] LABS: BASO % 0.1 % (0.0-2.0); GRAN # 9.2 (1.4-6.5); GRAN % 85.4 % (42.2-75.2); LYMPH # 0.9 (1.2-3.4); LYMPH % 8.6 % (20.0-51.0); MEAN CORPUSCULAR HGB CONC 32 g/dl (33.0-37.0); MEAN PLATELET VOLUME 8.9 fl (7.4-10.4); MONO # 0.5 (0.1-0.6); MONO % 4.7 % (1.7-9.3); PLATELET COUNT 244 K/mm3 (130-400); RED BLOOD COUNT 3.75 M/mm3 (4.10-5.30); REDCELL DISTRIBUTION WIDTH-CV 13.9 % (11.5-14.5)
[2019-06-02 05:51] LABS: HEMATOCRIT 34.6 % (37.0-47.0); HEMOGLOBIN 11.2 g/dl (12.5-16.0); MEAN CORPUSCULAR HEMOGLOBIN 30 pg (27.0-31.0)
[2019-06-02 05:52] LABS: MEAN CELL VOLUME 92 fl (80.0-100.0)
[2019-06-02 06:00] LABS: CREATININE, serum 0.97 (0.52-1.25); MAGNESIUM 2.2 mg/dL (1.6-2.3); PHOSPHOROUS 2.4 mg/dL (2.5-4.5); POTASSIUM 4.4 mmol/L (3.4-5.0)
[2019-06-02 06:13] LABS: TROPONIN-I 0.996 ng/mL (0.000-0.035)
[2019-06-02 09:20] LABS: ARTERIAL BLD GAS TCO2 CT 24.7; ARTERIAL BLOOD GAS BASE EXCESS 0.9 (-2-2); ARTERIAL BLOOD GAS HCO3 23.7 meq/L (22-26); ARTERIAL BLOOD GAS PCO2 31.9 mmHg (35-45); ARTERIAL BLOOD GAS PO2 150.2 mmHg (80-100); ARTERIAL BLOOD GAS pH 7.49 (7.35-7.45)
[2019-06-02 10:33] LABS: BILIRUBIN UNCONJUGATED 0.1 mg/dL (0.0-1.1); BILIRUBIN,DIRECT 0.1 mg/dL (0.0-0.4); BILIRUBIN,TOTAL 0.2 mg/dL (0.0-1.0); TOTAL PROTEIN 5.5 gm/dL (6.4-8.2)
--- NOTE | 2019-06-02 14:46 | NUR ---
Plan: To return home to [facility]. DPOA is Patients daughters Shayla and Gilma, and is on file per Patients daughter. ASsess: Sw met with patient with daughter Stephanie at bedside [phone]. Patient gave permission to discuss information in front of daughter. Patient reports that she utilizes a walker, and a nebulizer, and that her PCP is Dr. Mathew, with no follow up appointments. Patient also gets her medications from [facility]. Plan is to return Patient back to [facility]. Action: Cecily will continue to follow up with [facility], and will follow up with patient.
--- NOTE | 2019-06-02 16:05 | NUR ---
Tube feed initiated as per orders as this time. Will continue to monitor.
--- NOTE | 2019-06-02 20:15 | NUR ---
TALKED WITH E CARE, ABOUT SOFT B/P AND PULSES. ORDERED TO DECREASE PROPOFOL, DECREASE CARDIZEM, AND ADMINISTER BOLUS OF 500 CC NS. ALL MEDS ADMINISTERED ORDERED. 2044 VITALS RESPONDED, BECAME STABLE, STAFF WILL CONTINUE TO OBSERVE,
[2019-06-03] VITALS (251 sets, daily range): BP systolic 75–127; BP diastolic 51–90; PULSE 61–153; TEMP 97.6–98; O2SAT 95–100
--- NOTE | 2019-06-03 02:00 | NUR ---
PATIENT IS AGITATED MOVING ABOUT. LOOKS AT STAFF WHEN SPOKEN TO VERSED 2MG GIVEN ORDERED. 0240 PATIENT ASLEEP WILL CONTINUE TO OBSERVE
[2019-06-03 05:31] LABS: BASO % 0.1 % (0.0-2.0); GRAN # 14.9 (1.4-6.5); GRAN % 86.2 % (42.2-75.2); LYMPH # 0.6 (1.2-3.4); LYMPH % 3.3 % (20.0-51.0); MEAN CELL VOLUME 94 fl (80.0-100.0); MEAN CORPUSCULAR HEMOGLOBIN 30 pg (27.0-31.0); MEAN CORPUSCULAR HGB CONC 32 g/dl (33.0-37.0); MEAN PLATELET VOLUME 8.9 fl (7.4-10.4); MONO # 1.4 (0.1-0.6); MONO % 8.1 % (1.7-9.3); PLATELET COUNT 274 K/mm3 (130-400); RED BLOOD COUNT 3.67 M/mm3 (4.10-5.30); REDCELL DISTRIBUTION WIDTH-CV 14.6 % (11.5-14.5)
[2019-06-03 05:32] LABS: HEMATOCRIT 34.4 % (37.0-47.0)
[2019-06-03 05:36] LABS: ARTERIAL BLOOD GAS BASE EXCESS 4.5 (-2-2); ARTERIAL BLOOD GAS HCO3 29.6 meq/L (22-26); ARTERIAL BLOOD GAS PCO2 46.2 mmHg (35-45); ARTERIAL BLOOD GAS PO2 107.9 mmHg (80-100); ARTERIAL BLOOD GAS pH 7.42 (7.35-7.45)
[2019-06-03 05:42] LABS: ALBUMIN 2.9 gm/dL (3.5-5.0); BILIRUBIN,TOTAL 0.2 mg/dL (0.0-1.0); CALCIUM 8.8 mg/dL (8.4-10.2); CREATININE, serum 1.2 (0.52-1.25); MAGNESIUM 2.1 mg/dL (1.6-2.3); PHOSPHOROUS 3.4 mg/dL (2.5-4.5); POTASSIUM 3.4 mmol/L (3.4-5.0); TOTAL PROTEIN 5.4 gm/dL (6.4-8.2)
--- NOTE | 2019-06-03 07:15 | NUR ---
NOTED DURING BESIDE REPORT PT APPEARS TO BE IN AFIB RVR. PT HAD BEEN ON SEDATION VACATION BUT WAS TURNED BACK TO 30MCG/KG/MIN OF PROPOFOL BUT IS STILL CURRENTLY ON CPAP MODE ON THE VENT. RT CALLED FOR EKG AND ALSO PT PLACED BACK ON ASSIST CONTROL MODE. EKG CONFIRMS AFIB RVR HR FROM 120-160'S. PT IS RESTLESS AND AGITATED. PROPOFOL INCREASED AND PRN VERSED GIVEN. PT'S HR STILL REMAINING ELEVATED. CALLED AND NOTIFIED. ORDERS RECEIVED FOR LOPRESSOR THRU OG. PT AND FAMILY UPDATED. 0745: PT'S BP DIPPING INTO THE 80'S. HR STILL ELEVATED. PROPOFOL PUT ON STAND BY. BP UP TO THE 90'S AND NEW LOPRESSOR GIVEN. 0804: PT STILL RESTLESS BUT BP IN THE 90-100'S. PROPOFOL RESTARTED.
--- NOTE | 2019-06-03 07:20 | NUR ---
BEDSIDE REPORT. PT HAS PROPOFOL RUNNING AT 30MCG/KG/MIN.
--- NOTE | 2019-06-03 08:40 | NUR ---
PT BECOMING RESTLESS AND BP BETTER. PROPOFOL RESTARTED AT PAST RATE.
--- NOTE | 2019-06-03 09:00 | NUR ---
PT STILL IN AFIB HR 120-150'S. BP RANGING FROM 80-100'S. NOTIFIED. ORDER RECEIVED FOR IV DIG NOW AND AGAIN IN SIX HOURS. FAMILY AND PT UPDATED. 0915: WHILE GIVING DIG PT CONVERTED TO SR. EKG DONE TO CONFIRM. AND FAMILY NOTIFIED.
--- NOTE | 2019-06-03 11:05 | NUR ---
SEDATION STOPPED. TO HAVE DISCUSSION WITH PT REGARDING PLAN OF CARE PER FAMILY REQUEST, IN AN HOUR.
--- NOTE | 2019-06-03 14:16 | NUR ---
PT COMFORT CARE AND GOING TO TRANSFER TO THE MEDICAL FLOOR ROOM 356. ATTEMPTED TO CALL REPORT BUT RN BUSY. STATES SHE WILL CALL BACK. PT AND FAMILY UPDATED.
--- NOTE | 2019-06-03 15:00 | NUR ---
Pt arrives to medical unit rm 356 from ICU via bed accompanied by nurses and family. Pt awake and alert, oriented x 3, struggling to speak s/t coarse throat and trouble getting breath. Medication options reviewed with pt and pt's family. Pt reports allergy to Morphine, states "it makes me not right in the head," refusing any kind of Morphine. PRN Ativan offered and administered per orders. RT called for treatment per family request. No further needs reported. Call light in reach.
--- NOTE | 2019-06-03 19:00 | NUR ---
Pt resting in bed with eyes closed. Resp even and unlabored. Pt's family requests to keep Ativan every 2 hours to keep pt comfortable and deter agitation. Medication administered per orders and request. No further needs reported. Call light in reach.
--- NOTE | 2019-06-03 20:49 | NUR ---
Lying in bed with eyes closed. Nonverbal at this time. RT in room and applies oxymask. Family at bedside. Family requests no oral medications or IV antibiotics to be given. Would like the Ativan to be given every two hours to keep the patient comfortable. No further needs at this time.
--- NOTE | 2019-06-03 21:07 | NUR ---
Family members request Ativan to be given every two hours to keep patient comfortable with her breathing. Ativan administered as prescribed.
--- NOTE | 2019-06-03 22:19 | NUR ---
Spoke with the family regarding performing catheter care. They decline to have catheter care performed at this time. Explained that if they change their mind to let us know. Asked if they would like us to reposition the patient in the bed and they decline. Family feels that the patient is comfortable the way that she is positioned and would like to keep her that way at this time. Explain that if they would like her to be repositioned to let us know and we will help reposition. Family members feels that the patient is starting to get a little more "gurgly" sounding and they explain they are aware that this will get worse as they were told that her lungs will fill with fluid. Family declines any further needs at this time. Patient in supine position in bed with eyes closed. HOB elevated approximately 75 degrees. Ocymask remains in place. Family in room and waiting area.
--- NOTE | 2019-06-03 23:11 | NUR ---
Ativan administered as prescribed. Family remains at bedside and waiting area. Family would like Dilaudid to be given here in a little bit as well to help with comfort.
--- NOTE | 2019-06-03 23:27 | NUR ---
O2 CHECK REMOVED DUE TO PT BEING COMFORT CARE ONLY.
--- NOTE | 2019-06-03 23:30 | NUR ---
Dilaudid administered as prescribed. Patient was moving arms and shoulders. Family remains with patient.
--- NOTE | 2019-06-04 00:43 | NUR ---
Patient making small movements and facial expressions indicating possible discomfort. Discussed with KAY Gerber, and order for Dilaudid 0.5mg IV changed to every hour instead of every two hours. Administered Dilaudid at this time.
--- NOTE | 2019-06-04 01:17 | NUR ---
Family requests Ativan to be given. Administered Ativan as prescribed. Patient lying in bed with eyes closed, nonverbal. Respirations even and unlabored. Oxymask on. No signs or symptoms of discomfort noted at this time. Family in room and waiting area.
--- NOTE | 2019-06-04 01:53 | NUR ---
Family would like Dilaudid administered. Administered as prescribed. Patient with eyes closed. Respirations even and unlabored. Oxymask on. No signs or symptoms of discomfort noted at this time. Respirations even and unlabored. Daughter says that she thinks the patient is beginning to look paler than she was. Family remains at bedside and in waiting area.
--- NOTE | 2019-06-04 02:59 | NUR ---
Family would like Dilaudid administered to continue to keep patient comfortable. Administered Dilaudid as prescribed. Patient remains in bed with eyes closed. Respirations even and unlabored, seem to be slightly shallower. Family remains in room and waiting area. Family requests Atian be given as soon as due. Denies further needs at this time.
--- NOTE | 2019-06-04 03:12 | NUR ---
Ativan administered as prescribed.
--- NOTE | 2019-06-04 04:53 | NUR ---
Lying in bed with eyes closed. Nonverbal. Respirations even and unlabored. Some pausing between breaths. Family feels that the respirations are slowing more and getting shallower. Administered Dilaudid as prescribed per patient request. No signs or symptoms of discomfort noted. Family denies needs at this time.
--- NOTE | 2019-06-04 05:24 | NUR ---
Lying in bed with eyes closed. Nonverbal. Respirations even and unlabored, some longer pauses noted between breaths. No signs or symptoms of discomfort. Ativan administered as prescribed per family request. No further needs at this time.
--- NOTE | 2019-06-04 05:48 | NUR ---
Family concerned that oygen is prolonging the patient dying process. Explained that the oxygen is not prolonging the process. Assessed oxygen saturation levels, 98% on 4L via oxymask. Turned oxygen level down to 2L per oxymask. Family also concerned that Ativan causes her to speed up her respirations so they would like to hold off on the Ativan and only do Dilaudid at this time. Explain that is fine and if the patient begins to demonstrate agitation or respiratory difficulties we can always readminister. Family would like to have Dilaudid given at this time. Administered as prescribed. Patient resting in bed with eyes closed. No signs or symptoms of discomfort noted.
--- NOTE | 2019-06-04 06:12 | NUR ---
SpO2 continues at 97% on the oxymask at 2L. Oxygen rate decreased to 1L per oxymask per family request. No further needs at this time.
--- NOTE | 2019-06-04 06:23 | NUR ---
Family explains that oxygen saturation level has come down a little bit and heart rate increased a little bit on O2 at 1L per oxymask. Asked if they wanted me to increase oxygen back up to 2L and they decline at this time. Will continue to monitor and will let staff know if they would like to have oxygen increased.
--- NOTE | 2019-06-04 06:30 | NUR ---
Report received from BRIANNA Wilson. TP in bed resting with family surrounding her. Discussed wishes with family, will continue to monitor.
--- NOTE | 2019-06-04 06:39 | NUR ---
Administered Dilaudid as prescribed per family request. Patient lying in bed with eyes closed, respirations even and unlabored. Patient has moist sound with breathing. SpO2 at 90% on oxymask at 1L. Heart rate in 70's. Family denies needs at this time.
--- NOTE | 2019-06-04 07:58 | NUR ---
Assessment charted. pt is breathing shallow, RR 12/min with periods of apnea.Lungs are coarse and diminished. moreno draining clear yellow urine. INT to RH is leaking, will discuss other options. Will continue to monitor.
--- NOTE | 2019-06-04 09:07 | NUR ---
SHAYY collaborated with Palliative Care Nurse, Margy. The patient's daughters have transitioned the patient to comfort care. SHAYY updated [facility] at [facility]. SW to continue to follow.
--- NOTE | 2019-06-04 10:00 | NUR ---
Family came to desk requesting me. Upon entry noted pt is apneac, listened to heart sounds and none were found. Called house painter helper, admitting physician, forensic social worker and confirmed family's wishes.
--- NOTE | 2019-06-04 10:25 | NUR ---
[facility] notified of patient , referral number [id number].
--- NOTE | 2019-06-04 10:27 | NUR ---
Dr. Hernandez's office notified of patient .
--- NOTE | 2019-06-04 10:37 | NUR ---
The patient . Reverse Engineer was notified and [facility] contacted. The patient is not a candidate. SW met with the patient's daughter's, Gilma & Stephanie and son, Jerome. SW provided support. SW contacted the families preferred home, [facility]. No additional needs at this time.
--- NOTE | 2019-06-04 10:42 | NUR ---
Post mortem care provided, removed all tubes including catheter and iv site. Family at bedside, awaiting arrival of home.
--- NOTE | 2019-06-04 11:00 | NUR ---
PT left via cart with home staff. Family took all belongings, criteria met.
--- NOTE | 2019-06-04 11:16 | NUR ---
Met with family at bedside this am at request of primary nurse Savanna. Family has elected to remove oxygen from pt who did maintain her 02 sats fairly well as 02 was being reduced. Reviewed what to expect in the dying process that they may observe. Support provided as they discussed options for transfer and when a transfer might be expected. Family was encouraged to focus on pt at this time as I would not anticipate that pt would be transfered today. Did discuss hospice house vs return to [facility] as options. 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 They do have a comfort basket at bedside. Spritzer, mouth sponges and moisterizer provided to family. Notified of pt passing at 1000. Family is relieved that she was able to pass peacefully. Physician, house principal have been notified. Support provided.
== END 2019-06-04 10:00 | disposition expired | DRG 871 ==
LOC: COL.ER 17:46 → ICU 18:43 → MEDICAL 06-03 14:07
PROVIDERS: Hospitalist; Internal Medicine Critical Care Medicine; ADMIT Emergency Medicine
PROC: 5A1935Z Respiratory Ventilation, Less than 24 Consecutive Hours (ICD-10-PCS; principal; 2019-06-02)
DX: A41.9 Sepsis, unspecified organism (principal); J18.9 Pneumonia, unspecified organism; J96.21 Acute and chronic respiratory failure with hypoxia; J96.22 Acute and chronic respiratory failure with hypercapnia; S22.41XA Multiple fractures of ribs, right side, initial encounter for closed fracture; J44.1 Chronic obstructive pulmonary disease with (acute) exacerbation; I50.20 Unspecified systolic (congestive) heart failure; J90 Pleural effusion, not elsewhere classified; E87.3 Alkalosis; G93.49 Other encephalopathy; Z66 Do not resuscitate; G47.33 Obstructive sleep apnea (adult) (pediatric); K21.9 Gastro-esophageal reflux disease without esophagitis; E87.5 Hyperkalemia; I11.0 Hypertensive heart disease with heart failure; I27.20 Pulmonary hypertension, unspecified; R74.0 Nonspecific elevation of levels of transaminase and lactic acid dehydrogenase [LDH]; I34.0 Nonrheumatic mitral (valve) insufficiency; Z96.653 Presence of artificial knee joint, bilateral; Z96.643 Presence of artificial hip joint, bilateral; Z90.49 Acquired absence of other specified parts of digestive tract; Z79.891 Long term (current) use of opiate analgesic; Z98.42 Cataract extraction status, left eye; Z98.41 Cataract extraction status, right eye; Z79.52 Long term (current) use of systemic steroids; Z87.891 Personal history of nicotine dependence; Z88.6 Allergy status to analgesic agent; Z88.3 Allergy status to other anti-infective agents; Z88.5 Allergy status to narcotic agent; Z88.8 Allergy status to other drugs, medicaments and biological substances; Z51.5 Encounter for palliative care
CPT/HCPCS: 99223-AI; 99233-AI; 99238; J0330; J1160; J1170; J1650; J1940; J2060; J2250; J2270; J2543; J2704; J2920; J3010; J3370; J7030; J7050